=== PATIENT | female | born 1990 | race Caucasian/White ===

== ENCOUNTER 2025-01-14 20:44 | Emergency (ER) | payer MEDICAID ==
[~2025-01-14] VITALS: Ht 167.6 cm; Wt 56.7 kg
[2025-01-14 20:48] VITALS: BP 121/79
[2025-01-14] MEDS: ACETAMINOPHEN 500 MG TABLET PO ONE (22:13)
[2025-01-14] MEDS: IBUPROFEN 400 MG TABLET PO ONE (22:13)
[2025-01-14 22:31] VITALS: BP 121/79; TEMP 98; O2SAT 98
== END 2025-01-14 22:15 | disposition home or self-care (01) ==
LOC: ER 20:46
DX: S93.492A Sprain of other ligament of left ankle, initial encounter (principal); Z60.2 Problems related to living alone; W18.43XA Slipping, tripping and stumbling without falling due to stepping from one level to another, initial encounter; Y93.89 Activity, other specified; Y92.89 Other specified places as the place of occurrence of the external cause; Y99.8 Other external cause status
CPT/HCPCS: 73610; A4606; A4663